=== PATIENT | male | born 1950 | race Caucasian/White ===

== ENCOUNTER 2017-05-30 08:36 | Observation (INO) | payer MEDICARE, BC ==
[~2017-05-30] VITALS: Ht 167.6 cm; Wt 91.0 kg
[~2017-05-30 08:36] MED LIST: ASPI81CH PO; ATOR80 PO; Amaryl1 MG PO; CLOP75 PO; LEVSOD125 PO; LISI20 PO; METF500 PO; NITR.4SL SL; PANT40 PO; PRAV20 PO; Toprol Xl50 MG PO; Xopenex Hfa15 GM INH
[2017-05-31 04:42] LABS: Anion Gap 7 mmol/L (6-16); Blood Urea Nitrogen 17 mg/dL (8-24); Bun/Creatinine Ratio 18.4 (12.0-20.0); CO2, Blood 25 mmol/L (21-32); Calcium, Blood 8.5 mg/dL (8.5-10.1); Chloride, Blood 107 mmol/L (98-108); Creatinine, Blood 0.92 mg/dL (0.60-1.20); Glomerular Filtration Rate >60 (60-); Glucose, Blood 178 mg/dL (70-99); Potassium, Blood 4.1 mmol/L (3.5-5.5); Sodium, Blood 139 mmol/L (136-145)
[2017-05-31] MEDS ORDERED: ASPI325 PO (07:45)
== END 2017-05-31 08:48 | disposition home or self-care (01) ==
LOC: MHTC 08:36 → ICUE 13:05 → MHTC 13:06 → ICUE 05-31 08:48
PROVIDERS: Internal Medicine Interventional Cardiology
DX: I25.10 Atherosclerotic heart disease of native coronary artery without angina pectoris (principal); I10 Essential (primary) hypertension; E11.9 Type 2 diabetes mellitus without complications; E78.5 Hyperlipidemia, unspecified; E03.9 Hypothyroidism, unspecified; E66.01 Morbid (severe) obesity due to excess calories; Z79.84 Long term (current) use of oral hypoglycemic drugs; Z79.82 Long term (current) use of aspirin; Z79.899 Other long term (current) drug therapy; Z87.891 Personal history of nicotine dependence; Z82.49 Family history of ischemic heart disease and other diseases of the circulatory system; Z79.02 Long term (current) use of antithrombotics/antiplatelets; Z88.0 Allergy status to penicillin; Z88.5 Allergy status to narcotic agent; Z98.61 Coronary angioplasty status; Z68.31 Body mass index [BMI] 31.0-31.9, adult; Z51.81 Encounter for therapeutic drug level monitoring
CPT/HCPCS: 36415; 80048; 82947; 85347; 85730; 92920; 92921; 93005; 93010; 93458; 99152; 99153; C1725; C1753; C1769; C1874; C1894; C9600; C9601; J1644; J2250; J3010; J7030; Q9967

== ENCOUNTER 2020-03-20 13:53 | Inpatient (IN) | payer MEDICARE, BC ==
[~2020-03-20] VITALS: Ht 167.6 cm; Wt 79.7 kg
[~2020-03-20 13:53] MED LIST changes: +ASPI325 PO; +EUTHYROX125 MCG PO; -LEVSOD125 PO; +METO100ER PO; -Toprol Xl50 MG PO
[2020-03-20 14:33] LABS: BASOPHILS ABSOLUTE AUTO 0.07 K/mm3 (0.00-0.23); BASOPHILS PERCENT AUTO 1 % (0-2); EOSINOPHILS ABSOLUTE AUTO 0.35 K/mm3 (0.00-0.68); EOSINOPHILS PERCENT AUTO 6 % (0-6); Hematocrit 45.3 % (37.0-53.0); Hemoglobin 14.1 g/dL (13.5-17.5); IMMATURE GRAN ABSOLUTE AUTO 0.04 K/mm3 (0.00-0.10); IMMATURE GRAN PERCENT AUTO 1 % (0-1); LYMPHOCYTES ABSOLUTE AUTO 1.45 K/mm3 (0.84-5.20); LYMPHOCYTES PERCENT AUTO 23 % (21-46); MONOCYTES ABSOLUTE AUTO 0.61 K/mm3 (0.16-1.47); MONOCYTES PERCENT AUTO 10 % (4-13); Mean Corpuscular HGB 28.8 pg (26.0-34.0); Mean Corpuscular HGB Conc 31.1 g/dL (31.5-36.5); Mean Corpuscular Volume 93 fL (80-100); Mean Platelet Volume 10.6 fL (9.1-12.4); NEUTROPHILS ABSOLUTE AUTO 3.72 K/mm3 (1.96-9.15); NEUTROPHILS PERCENT AUTO 60 % (41-73); Platelet Count 200 K/mm3 (150-400); RDW Coefficient Variation 13.2 % (11.7-14.2); RDW Standard Deviation 44.7 fL (35.1-46.3); Red Blood Cell Count 4.89 M/mm3 (4.30-5.90); White Blood Cell Count 6.24 K/mm3 (4.00-11.30)
[2020-03-20 14:56] LABS: Alanine Aminotransfer (ALT/SGP 46 U/L (12-78); Albumin/Globulin Ratio 1.1 (0.8-1.8); Alk Phos 58 U/L (50-136); Anion Gap 10 mmol/L (6-16); Aspartate Aminotrans (AST/SGOT 16 U/L (12-37); Bilirubin, Total 0.8 mg/dL (0.1-1.0); Blood Urea Nitrogen 22 mg/dL (8-24); Bun/Creatinine Ratio 19.6 (12.0-20.0); CO2, Blood 21 mmol/L (21-32); Calcium, Blood 9.1 mg/dL (8.5-10.1); Chloride, Blood 102 mmol/L (98-108); Creatinine, Blood 1.12 mg/dL (0.60-1.20); Globulin, Blood 3.7 g/dL (2.2-4.0); Glomerular Filtration Rate >60 (60-); Glucose, Blood 470 mg/dL (70-99); Potassium, Blood 4.8 mmol/L (3.5-5.5); Sodium, Blood 133 mmol/L (136-145); Total Protein, Blood 7.7 g/dL (6.4-8.2); Troponin I 0.147 ng/mL (0.000-0.040)
[2020-03-20] MEDS ORDERED: JARDIANCE25 MG PO (16:09)
[2020-03-20] MEDS ORDERED: GLUCOPHAGE1000 M4 PO (16:09)
[2020-03-20] MEDS ORDERED: LISI20 PO (16:10)
[2020-03-20 18:02] LABS: International Normalized Ratio 1.03
--- NOTE | 2020-03-20 20:22 | NUR ---
ADMIT NOTE PT ARRIVED TO PCU FROM ED VIA STRETCHER AT APPROX 1930. PT AMBULATED FROM ED STRETCHER TO PCU BED INDEPENDENTLY. PT A&OX4, PLEASANT. SP02>92% ON RA, LUNGS CLEAR. TELEMETRY READS SR, HR 80'S. PT C/O OF 3/10 CP, STATES IT FEELS LIKE "SOMEONE HAS THEIR THUMB SITTING ON MY APEX." FURTHER QUESTIONED IF THUMB FELT LIKE IT WAS PUSHING DOWN? PT STATED NO, IT "FEELS LIKE A THUMB IS JUST SITTING THERE." TRAY DELIVERED TO ROOM, PT EATING DURING ADMIT. ORIENTED TO ROOM, INSTRUCTED TO USE URINAL AT BEDSIDE, USE CALL LIGHT TO MAKE NEEDS KNOWN. HEPARIN INFUSING PER EMAR. CALL LIGHT IN REACH. BED IN LOWEST POSITION.
--- NOTE | 2020-03-21 04:55 | NUR ---
SHIFT SUMMARY NO ACUTE CHANGES THIS SHIFT. PT A&OX4, PLEASANT. SP02>92% ON RA, LUNGS CLEAR. TELEMETRY READS SR, HR 80'S. PT C/O OF 2/10 CONSTANT CP/PRESSURE. PT HAD TROUBLE FALLING ASLEEP, STATED HE TAKES MELATONIN AT HOME. CALL PLACED TO [facility]RE [facility]USHER ROXANA. ORE CRUSHER ROXANA W/ ORDERS FOR 5 MG MELATONIN. PT DID SLEEP OFF AND ON T/O NIGHT. PT USED URINAL AT BEDSIDE. PT NPO SINCE MIDNIGHT PER ORDERS. HEPARIN INFUSING PER EMAR. CALL LIGHT IN REACH. BED IN LOWEST POSITION.
[2020-03-21 06:30] LABS: BASOPHILS ABSOLUTE AUTO 0.07 K/mm3 (0.00-0.23); BASOPHILS PERCENT AUTO 1 % (0-2); EOSINOPHILS ABSOLUTE AUTO 0.49 K/mm3 (0.00-0.68); EOSINOPHILS PERCENT AUTO 6 % (0-6); Hematocrit 43.1 % (37.0-53.0); Hemoglobin 13.7 g/dL (13.5-17.5); IMMATURE GRAN ABSOLUTE AUTO 0.04 K/mm3 (0.00-0.10); IMMATURE GRAN PERCENT AUTO 1 % (0-1); LYMPHOCYTES ABSOLUTE AUTO 2.38 K/mm3 (0.84-5.20); LYMPHOCYTES PERCENT AUTO 29 % (21-46); MONOCYTES ABSOLUTE AUTO 0.88 K/mm3 (0.16-1.47); MONOCYTES PERCENT AUTO 11 % (4-13); Mean Corpuscular HGB 29.7 pg (26.0-34.0); Mean Corpuscular HGB Conc 31.8 g/dL (31.5-36.5); Mean Corpuscular Volume 94 fL (80-100); Mean Platelet Volume 10.6 fL (9.1-12.4); NEUTROPHILS ABSOLUTE AUTO 4.34 K/mm3 (1.96-9.15); NEUTROPHILS PERCENT AUTO 53 % (41-73); Platelet Count 194 K/mm3 (150-400); RDW Coefficient Variation 13.4 % (11.7-14.2); RDW Standard Deviation 46.1 fL (35.1-46.3); Red Blood Cell Count 4.61 M/mm3 (4.30-5.90)
[2020-03-21 06:40] LABS: Magnesium, Blood 2.1 mg/dL (1.6-2.4)
[2020-03-21 06:48] LABS: Anion Gap 8 mmol/L (6-16); Blood Urea Nitrogen 26 mg/dL (8-24); Bun/Creatinine Ratio 21.1 (12.0-20.0); CHOL/HDL RATIO 4.3; CO2, Blood 24 mmol/L (21-32); Calcium, Blood 9.4 mg/dL (8.5-10.1); Chloride, Blood 104 mmol/L (98-108); Cholesterol 138 mg/dL (50-200); Creatinine, Blood 1.23 mg/dL (0.60-1.20); Glomerular Filtration Rate >60 (60-); Glucose, Blood 274 mg/dL (70-99); HDL Cholesterol 32 mg/dL (>39); LDL/HDL RATIO Unable to Calculate; Low Density Lipoprotein Chol Unable to Calculate mg/dL (0-110); Potassium, Blood 4.6 mmol/L (3.5-5.5); Sodium, Blood 136 mmol/L (136-145); Triglycerides 814 mg/dL (30-160); Troponin I 0.175 ng/mL (0.000-0.040); Very Low Density Lipoprot Chol Unable to Calculate mg/dL (6-32)
--- NOTE | 2020-03-21 09:10 | NUR ---
Echocardiogram completed.
[2020-03-21 09:56] LABS: Influenza A, PCR Negative (NEGATIVE); Influenza B, PCR Negative (NEGATIVE); Resp Syncytial Virus, PCR Negative (NEGATIVE); SARS-Cov-2 (COVID-19) PCR, MMC Negative (NEGATIVE)
--- NOTE | 2020-03-21 10:10 | NUR ---
UPDATE PT TAKEN BY HEART CENTER STAFF TO NUMERICAL CONTROL MACHINE TOOL OPERATOR. WILL AWAIT RETURN.
--- NOTE | 2020-03-21 11:15 | NUR ---
UPDATE PT RETURNED FROM [employer]. VS STABLE. O2 SATS REMAIN ABOVE 90% ON RA. PLAN FOR PT TO TRANSFER TO [facility] FOR POSSIBLE CABG. RIGHT RADIAL SITE FREE FROM ANY BLEEDING, BRUISING OR HEMATOMA. ARM BOARD IN PLACE AND PT EDUCATED ON RESTRICTIONS. WILL CONTINUE TO MONITOR CLOSELY .
--- NOTE | 2020-03-21 14:30 | NUR ---
HEP GTT RESTART PER DR. NORRIS. PHARMACY NOTIFIED.
--- NOTE | 2020-03-21 17:51 | NUR ---
SHIFT SUMMARY PT ALERT AND ORIENTED. VS STABLE. O2 SATS REMAIN ABOVE 90% ON RA. HR NSR. RIGHT RADIAL SITE WITH CLEAR DRESSING IN PLACE. NO BLEEDING OR HEMATOMA NOTED. ARM BOARD IN PLACE. HEP GTT IN FUSING PER ORDERS. PT STILL AWAITING TRANSFER. WILL CONTINUE TO MONITOR AND REPORT TO ONCOMING RN. CALL LIGHT IN REACH.
--- NOTE | 2020-03-21 19:20 | NUR ---
ASSUMED CARE RECIEVED BEDSIDE REPORT FROM PEACE RN; PT A&O X 4; DENIES CHEST PAIN; VSS; NSR NOTED ON TELE; R RADIAL SITE C/D WITH TEGADERM AND ARM BOARD IN PLACE; FINGERS WARM TO TOUCH; PT DENIES NUMBNESS; HEP GTT TO R FOREARM; INDEPENDENT IN ROOM; PT REQUEST TO CALL DOCTOR AND REQUEST INCREASE TO 2100 MELATONIN; CALL LIGHT IN REACH; BED IN LOWEST POSITION
--- NOTE | 2020-03-21 20:10 | NUR ---
UPDATE CALL TO THOMAS SCHMIDT NP TO REQUEST MELATONIN INCREASE TO 10MG PER PATIENT REQUEST; THOMAS AGREED; NEW ORDER PLACED, REFER TO EMAR
--- NOTE | 2020-03-22 06:23 | NUR ---
SHIFT SUMMARY PT A&O X 4; VSS; DENIES CHEST PAIN; NSR NOTED ON TELE W/ HR 80'S; HEP GTT @ 16/U/KG/HR ADJUSTED PER PHARMACY; O2 SATS >93 ON RA; INDEPENDENT IN ROOM; USES URINAL AT BEDSIDE; AWAITING ROOM ASSIGNMENT FOR COBRA TRANSFER; SLEPT A FEW HOURS IN BETWEEN INTERVENTIONS; CALL LIGHT IN REACH; BED IN LOWEST POSITION; WILL CONTINUE TO MONITOR CLOSELY UNTIL HAND OFF TO DAY SHIFT RN.
--- NOTE | 2020-03-22 07:22 | NUR ---
HEparin gtt adjusted per pharmacy orders in eMAR.
--- NOTE | 2020-03-22 10:44 | NUR ---
Call to [facility] for update on room availability. My call was forwarded to the hand cigar making supervisor voice mail and I left a message asking about room availability.
--- NOTE | 2020-03-22 14:20 | NUR ---
TRANSFER PT TRANSFERED TO [facility] VIA GROUND TRANSPORT. REPORT WAS GIVEN TO UNIT CHARGE NURSE. PT'S PRESENT DURING TRANSFER, BELONGINGS WERE SENT WITH HER. PT REMAINS A&O X4, VSS, ON ROOM AIR, CONTINUES TO DENY CP/PRESSURE. HEPARIN GTT INFUSING PER EMAR UPON TRANSFER. R.RADIAL ACCESS SITE C/D/I, ARM BOARD IN PLACE.
== END 2020-03-22 14:26 | disposition short-term general hospital (02) | DRG 282 ==
LOC: ER 13:53 → PCU 19:00
PROVIDERS: Emergency Medicine; Internal Medicine Cardiovascular Disease; Physician Assistant; ADMIT Internal Medicine
PROC: 4A023N7 Measurement of Cardiac Sampling and Pressure, Left Heart, Percutaneous Approach (ICD-10-PCS; principal; 2020-03-21)
PROC: B211YZZ Fluoroscopy of Multiple Coronary Arteries using Other Contrast (ICD-10-PCS; 2020-03-21)
DX: I21.4 Non-ST elevation (NSTEMI) myocardial infarction (principal); I10 Essential (primary) hypertension; I25.10 Atherosclerotic heart disease of native coronary artery without angina pectoris; J45.909 Unspecified asthma, uncomplicated; E78.5 Hyperlipidemia, unspecified; I08.2 Rheumatic disorders of both aortic and tricuspid valves; E11.9 Type 2 diabetes mellitus without complications; Z79.4 Long term (current) use of insulin; Z79.01 Long term (current) use of anticoagulants; Z79.82 Long term (current) use of aspirin; Z79.84 Long term (current) use of oral hypoglycemic drugs; Z95.5 Presence of coronary angioplasty implant and graft; E03.9 Hypothyroidism, unspecified; Z87.891 Personal history of nicotine dependence
CPT/HCPCS: 0241U; 36415; 71046; 76937; 80048; 80053; 80061; 82947; 83036; 83735; 84484; 85025; 85347; 85610; 85730; 93306; 93458; 96376; 99152; 99285-25; A9270; C1769; C1894; J1644; J2250; J3010; J7030; Q9967

== ENCOUNTER 2020-06-07 13:13 | Observation (INO) | payer MEDICARE, BC ==
[~2020-06-07] VITALS: Ht 167.6 cm; Wt 79.4 kg
[~2020-06-07 13:13] MED LIST changes: +GLUCOPHAGE1000 M4 PO; +JARDIANCE25 MG PO
[2020-06-07 13:45] LABS: BASOPHILS ABSOLUTE AUTO 0.06 K/mm3 (0.00-0.23); BASOPHILS PERCENT AUTO 1 % (0-2); EOSINOPHILS ABSOLUTE AUTO 0.24 K/mm3 (0.00-0.68); EOSINOPHILS PERCENT AUTO 4 % (0-6); Hematocrit 37.2 % (37.0-53.0); Hemoglobin 11.7 g/dL (13.5-17.5); IMMATURE GRAN ABSOLUTE AUTO 0.03 K/mm3 (0.00-0.10); IMMATURE GRAN PERCENT AUTO 1 % (0-1); LYMPHOCYTES ABSOLUTE AUTO 1.36 K/mm3 (0.84-5.20); LYMPHOCYTES PERCENT AUTO 24 % (21-46); MONOCYTES ABSOLUTE AUTO 0.56 K/mm3 (0.16-1.47); MONOCYTES PERCENT AUTO 10 % (4-13); Mean Corpuscular HGB 28.8 pg (26.0-34.0); Mean Corpuscular HGB Conc 31.5 g/dL (31.5-36.5); Mean Corpuscular Volume 92 fL (80-100); Mean Platelet Volume 9.7 fL (9.1-12.4); NEUTROPHILS ABSOLUTE AUTO 3.44 K/mm3 (1.96-9.15); NEUTROPHILS PERCENT AUTO 61 % (41-73); Platelet Count 294 K/mm3 (150-400); RDW Coefficient Variation 13.9 % (11.7-14.2); Red Blood Cell Count 4.06 M/mm3 (4.30-5.90); White Blood Cell Count 5.69 K/mm3 (4.00-11.30)
[2020-06-07 14:04] LABS: Alanine Aminotransfer (ALT/SGP 38 U/L (12-78); Albumin, Blood 4.1 g/dL (3.4-5.0); Albumin/Globulin Ratio 1.2 (0.8-1.8); Alk Phos 66 U/L (50-136); Anion Gap 8 mmol/L (6-16); Aspartate Aminotrans (AST/SGOT 9 U/L (12-37); Bilirubin, Total 0.5 mg/dL (0.1-1.0); Blood Urea Nitrogen 22 mg/dL (8-24); Bun/Creatinine Ratio 19.6 (12.0-20.0); CO2, Blood 21 mmol/L (21-32); Calcium, Blood 8.6 mg/dL (8.5-10.1); Chloride, Blood 105 mmol/L (98-108); Creatinine, Blood 1.12 mg/dL (0.60-1.20); Globulin, Blood 3.5 g/dL (2.2-4.0); Glomerular Filtration Rate >60 (60-); Glucose, Blood 331 mg/dL (70-99); Sodium, Blood 134 mmol/L (136-145); Total Protein, Blood 7.6 g/dL (6.4-8.2); Troponin I <0.015 ng/mL (0.000-0.040)
[2020-06-07] MEDS ORDERED: HYDROCODONE-AC1 EA10 PO (16:04)
--- NOTE | 2020-06-07 18:46 | NUR ---
PT PLEASANT SINCE ADMIT. STATES CHEST PAIN MOSTLY GONE. NOW DOWN TO 3. HAS A NITRO PATCH ON CHEST. H/R REG, NO MURMER NOTED. PER TELE NSR AT 75. PT LUNGS CLEAR, RESP EASY, UNLABORED ON R.A. BT X4 LAST BM YEST PER PT. NO EDEMA NOTED. PT WEARING CESAR HOSE. REFUSED LOVENOX AND BILAT LEG COMP. BED IN LOW POSITION, CALL LITE IN REACH, CALLS APPROP
--- NOTE | 2020-06-07 21:21 | NUR ---
AT 2049, PATIENT COMPLAINED OF 8-9/10 MID STERNAL WELL ACROSS CHEST TIGHTNESS AND INCREASING SOB. VITAL SIGNS STABLE, 02 APPPLIED FOR COMFORT AND EKG COMPLETED WITH NO OBVIOUS CHANGES. CALL PLACED TO HOSPITALIST TO INFORM. PATIENT CURRENTLY WEARING 1.5" NTG PAST ON LEFT CHEST. AWAITING RETURN CALL. IN THE INTERIM, PATIENT'S DISCOMFORT DECREASED TO 4-5/10. [address] FOR COMFORT.
--- NOTE | 2020-06-07 23:50 | NUR ---
MID STERNAL CHEST PAIN NOW TOLERABLE 2-3 AT REST. PATIENT ENCOURAGED TO USE URINAL TO VOID INSTEAD OF AMBULATING TO BATHROOM . 2300 TROPONIN REMAINS 0.015 (NO CHANGE FROM PREVIOUS TROPONINS.) EVENING HOSPITALIST AWARE. WILL CONTINUE MONITORING
--- NOTE | 2020-06-08 04:58 | NUR ---
PATIENT AWAKE MOST OF THE NIGHT. HE DID STATE THAT HE ROUTINELY DOES HAVE INSOMNIA. COMPLAINED ABOUT MID STERNAL STABBING PAIN AND PRESSURE ACROSS CHEST. EACH TIME, HE HAD JUST GOTTEN OOB TO BATHROOM WHEN INTENSITY OF DISCOMFORT WOULD INCREASE. INITIALLY 02 WAS PLACED FOR PATIENT COMFORT. VITAL SIGNS (PLACED IN CHART) WERE ALL WNL. TROPONINS MENTIONED EARLIER WERE UNCHANGED FROM PREVIOUS 0.015 LEVEL. STAT EKG DURING FIRST EPISODE IS ON CHART AND REMAINS JUST EKG FROM 1330 YESTERDAY 2ND EPISODE WAS MUCH LIKE THE FIRST, EXCEPT PATIENT SEEMED MORE ANXIOUS. 2.5MG MORPHINE GIVEN PER ORDER WITH GOOD RELIEF OF CHEST PAIN, ONLY PATIENT WAS VERY UNCOMFORTABLE TAKING THE MORPHINE FOR HIS PAIN. INDER IS A&OX4, PLEASANT AND COOPERATIVE WITH CARE.
[2020-06-08 05:21] LABS: BASOPHILS ABSOLUTE AUTO 0.08 K/mm3 (0.00-0.23); BASOPHILS PERCENT AUTO 1 % (0-2); EOSINOPHILS ABSOLUTE AUTO 0.21 K/mm3 (0.00-0.68); EOSINOPHILS PERCENT AUTO 3 % (0-6); Hematocrit 35.8 % (37.0-53.0); Hemoglobin 11.3 g/dL (13.5-17.5); IMMATURE GRAN ABSOLUTE AUTO 0.02 K/mm3 (0.00-0.10); IMMATURE GRAN PERCENT AUTO 0 % (0-1); LYMPHOCYTES ABSOLUTE AUTO 2.03 K/mm3 (0.84-5.20); LYMPHOCYTES PERCENT AUTO 29 % (21-46); MONOCYTES ABSOLUTE AUTO 0.78 K/mm3 (0.16-1.47); MONOCYTES PERCENT AUTO 11 % (4-13); Mean Corpuscular HGB 28.4 pg (26.0-34.0); Mean Corpuscular HGB Conc 31.6 g/dL (31.5-36.5); Mean Corpuscular Volume 90 fL (80-100); Mean Platelet Volume 9.7 fL (9.1-12.4); NEUTROPHILS ABSOLUTE AUTO 3.91 K/mm3 (1.96-9.15); NEUTROPHILS PERCENT AUTO 56 % (41-73); Platelet Count 261 K/mm3 (150-400); RDW Coefficient Variation 13.7 % (11.7-14.2); RDW Standard Deviation 45.9 fL (35.1-46.3); Red Blood Cell Count 3.98 M/mm3 (4.30-5.90); White Blood Cell Count 7.03 K/mm3 (4.00-11.30)
[2020-06-08 05:57] LABS: Alanine Aminotransfer (ALT/SGP 34 U/L (12-78); Albumin, Blood 3.9 g/dL (3.4-5.0); Albumin/Globulin Ratio 1.3 (0.8-1.8); Alk Phos 56 U/L (50-136); Anion Gap 5 mmol/L (6-16); Aspartate Aminotrans (AST/SGOT 11 U/L (12-37); Bilirubin, Total 0.8 mg/dL (0.1-1.0); Blood Urea Nitrogen 18 mg/dL (8-24); Bun/Creatinine Ratio 18.6 (12.0-20.0); CO2, Blood 25 mmol/L (21-32); Calcium, Blood 8.9 mg/dL (8.5-10.1); Chloride, Blood 104 mmol/L (98-108); Creatinine, Blood 0.97 mg/dL (0.60-1.20); Glomerular Filtration Rate >60 (60-); Glucose, Blood 166 mg/dL (70-99); Potassium, Blood 4.5 mmol/L (3.5-5.5); Sodium, Blood 134 mmol/L (136-145); Total Protein, Blood 6.9 g/dL (6.4-8.2)
[2020-06-08 07:23] LABS: Influenza A, PCR NEGATIVE (NEGATIVE); Influenza B, PCR NEGATIVE (NEGATIVE); Resp Syncytial Virus, PCR NEGATIVE (NEGATIVE); SARS-Cov-2 (COVID-19) PCR, MMC NEGATIVE (NEGATIVE)
--- NOTE | 2020-06-08 12:36 | NUR ---
1000 PT CO CHEST PAIN. MIDSTERNAL. STATE FELT MORPHINE DID NOT HELP LAST NITE. FELT QUITE BAD WITH IT. STATES PAIN 8/10. THOUGHT THE NITRO DIDNT HELP MUCH WHEN TOOK AT HOME. SO, AGREED TO TRY NORCO. GAVE. DISCUSSED WITH DR ALMEIDA IN [facility]. 1100 PAIN AT 5/10. BETTER, NOT MUCH. AGREED TO TRY NITRO. DONE 1120 PAIN DOWN TO 3-4/10. GAVE ONE MORE. 1130 PAIN DOWN TO 2 NOW. BP 103/60 P 79. PT MORE COMFORTABLE.
--- NOTE | 2020-06-08 19:14 | NUR ---
PT KHAS BEEN PLEASANT TODAY. DID HAVE IN ROOM DURING VISIT HOURS TODAY. DR STARTED ON IMDUR TODAY. DISCUSSED HIS BP AND TAKING THE NITRO. ADVISED THE MORPHINE DID NOT DO WELL FOR HIM. FLUSHED AND VERY UNCOMFORTABLE FEELING. NORCO DID OKAY, BROUGHT PAIN FROM 8-9 TO A 5. TRIED NITRO S/L. AFFTER GAVE 2, DROPPED TO A 2. PT DID HAVE A LOW BP THIS AFT. OF 83/62. RETOOK, IT WAS 109/59. PT STATES ASYMPTOMATIC, SO NOT SURE IF TRUE READING . ADVISED PT TO GET ASSISTANCE IF FEELS SYMPTOMATIC OR IF NEEDS OUT OF BED. ADVISED RUTH RN TO WATCH BP. NO OTHER CONCERNS NOTED TODAY. BED IN LOW PPOSITION, CALL LITE IN REACH, CALLS APPROP
[2020-06-09 04:41] LABS: BASOPHILS ABSOLUTE AUTO 0.06 K/mm3 (0.00-0.23); BASOPHILS PERCENT AUTO 1 % (0-2); EOSINOPHILS ABSOLUTE AUTO 0.25 K/mm3 (0.00-0.68); EOSINOPHILS PERCENT AUTO 4 % (0-6); Hemoglobin 10.2 g/dL (13.5-17.5); IMMATURE GRAN ABSOLUTE AUTO 0.02 K/mm3 (0.00-0.10); IMMATURE GRAN PERCENT AUTO 0 % (0-1); LYMPHOCYTES ABSOLUTE AUTO 1.91 K/mm3 (0.84-5.20); LYMPHOCYTES PERCENT AUTO 29 % (21-46); MONOCYTES ABSOLUTE AUTO 0.82 K/mm3 (0.16-1.47); MONOCYTES PERCENT AUTO 13 % (4-13); Mean Corpuscular HGB 28.3 pg (26.0-34.0); Mean Corpuscular HGB Conc 30.9 g/dL (31.5-36.5); Mean Corpuscular Volume 92 fL (80-100); Mean Platelet Volume 9.8 fL (9.1-12.4); NEUTROPHILS ABSOLUTE AUTO 3.48 K/mm3 (1.96-9.15); NEUTROPHILS PERCENT AUTO 53 % (41-73); Platelet Count 247 K/mm3 (150-400); RDW Coefficient Variation 13.6 % (11.7-14.2); RDW Standard Deviation 45.9 fL (35.1-46.3); White Blood Cell Count 6.54 K/mm3 (4.00-11.30)
[2020-06-09 04:57] LABS: Anion Gap 4 mmol/L (6-16); Blood Urea Nitrogen 19 mg/dL (8-24); Bun/Creatinine Ratio 18.4 (12.0-20.0); CO2, Blood 24 mmol/L (21-32); Calcium, Blood 8.7 mg/dL (8.5-10.1); Chloride, Blood 106 mmol/L (98-108); Creatinine, Blood 1.03 mg/dL (0.60-1.20); Glomerular Filtration Rate >60 (60-); Glucose, Blood 191 mg/dL (70-99); Potassium, Blood 4.7 mmol/L (3.5-5.5); Sodium, Blood 134 mmol/L (136-145)
--- NOTE | 2020-06-09 05:45 | NUR ---
SHIFT SUMMARY- PT. A&O, COOPERATIVE WITH CARE. C/O CP LAST NIGHT 05/24. MEDICATED WITH NORCO WITH GOOD RELIEF. PT. STATES CP HAS BEEN PERSISTENT AND REMAINED A /10 DURING THE NIGHT. SLEPT T/O THE NIGHT, NO APPARENT DISTRESS NOTED, SR ON TELE. PT. INDEPENDENT IN ROOM, VSS. DENIES ANY OTHER NEEDS AT THIS TIME. CALL LIGHT WITHIN REACH AND SIDE RAILS UPX2. WILL CONT TO MONITOR.
[2020-06-09] MEDS ORDERED: Isosorbide Mono30 MG PO (10:39)
[2020-06-09] MEDS ORDERED: NITR.4SL SL (10:40)
--- NOTE | 2020-06-09 11:20 | NUR ---
REVIEW D'C WITH PATIENT. PATIENT HAD DISCUSSED VICKI ADAIR AND NOW REQUESTS. VS DONE. MED GIVEN. IV D'C W/NO SIGNS OF SWELLING OR BRUISING. PATIENT TO HAVE STENTS PLACED TOMORROW IN [place]. ADVISED TO CALL ABOUT WHAT MEDS TO NOT TAKE. HAS RX FOR NARCOTIC MED. OTHER RX'S SENT TO [facility]. ANSWER ALL QUESTIONS. PATIENT VERBALIZES UNDERSTANDING OF D'C. CAN RETURN TO E.R. IF NEEDED. AWARE [facility] WILL CALL FOR F/U APPT. AWAITING RIDE. W/C IN ROOM.
== END 2020-06-09 12:08 | disposition home or self-care (01) ==
LOC: ER 13:13 → MEDS 13:14
PROVIDERS: Physician Assistant; ADMIT Family Medicine
DX: I25.119 Atherosclerotic heart disease of native coronary artery with unspecified angina pectoris (principal); I10 Essential (primary) hypertension; E11.9 Type 2 diabetes mellitus without complications; E03.9 Hypothyroidism, unspecified; Z95.1 Presence of aortocoronary bypass graft; Z95.5 Presence of coronary angioplasty implant and graft; Z79.82 Long term (current) use of aspirin
CPT/HCPCS: 0241U; 36415; 71045; 80048; 80053; 82947; 84484; 85025; 93005; 93010; 94762; 99285-25; A9270; A9270-GY; J1815; J2270; J3480

== ENCOUNTER 2020-06-18 02:32 | Observation (INO) | payer MEDICARE, BC ==
[~2020-06-18] VITALS: Ht 167.6 cm; Wt 65.8 kg
[~2020-06-18 02:32] MED LIST changes: +HYDROCODONE-AC1 EA10 PO; +Isosorbide Mono30 MG PO
[2020-06-18 03:06] LABS: BASOPHILS ABSOLUTE AUTO 0.07 K/mm3 (0.00-0.23); BASOPHILS PERCENT AUTO 1 % (0-2); EOSINOPHILS ABSOLUTE AUTO 0.21 K/mm3 (0.00-0.68); EOSINOPHILS PERCENT AUTO 3 % (0-6); Hematocrit 38.2 % (37.0-53.0); Hemoglobin 11.9 g/dL (13.5-17.5); IMMATURE GRAN ABSOLUTE AUTO 0.03 K/mm3 (0.00-0.10); IMMATURE GRAN PERCENT AUTO 0 % (0-1); LYMPHOCYTES ABSOLUTE AUTO 1.63 K/mm3 (0.84-5.20); LYMPHOCYTES PERCENT AUTO 24 % (21-46); MONOCYTES ABSOLUTE AUTO 1.35 K/mm3 (0.16-1.47); MONOCYTES PERCENT AUTO 20 % (4-13); Mean Corpuscular HGB 28.5 pg (26.0-34.0); Mean Corpuscular HGB Conc 31.2 g/dL (31.5-36.5); Mean Corpuscular Volume 91 fL (80-100); Mean Platelet Volume 9.8 fL (9.1-12.4); NEUTROPHILS ABSOLUTE AUTO 3.64 K/mm3 (1.96-9.15); NEUTROPHILS PERCENT AUTO 53 % (41-73); Platelet Count 254 K/mm3 (150-400); RDW Coefficient Variation 13.4 % (11.7-14.2); RDW Standard Deviation 45.4 fL (35.1-46.3); Red Blood Cell Count 4.18 M/mm3 (4.30-5.90); White Blood Cell Count 6.93 K/mm3 (4.00-11.30)
[2020-06-18 03:25] LABS: Troponin I <0.015 ng/mL (0.000-0.040)
[2020-06-18 03:26] LABS: Alanine Aminotransfer (ALT/SGP 27 U/L (12-78); Albumin, Blood 4.3 g/dL (3.4-5.0); Albumin/Globulin Ratio 1.1 (0.8-1.8); Alk Phos 58 U/L (50-136); Anion Gap 8 mmol/L (6-16); Aspartate Aminotrans (AST/SGOT 14 U/L (12-37); Bilirubin, Total 0.6 mg/dL (0.1-1.0); Blood Urea Nitrogen 25 mg/dL (8-24); Bun/Creatinine Ratio 19.5 (12.0-20.0); CO2, Blood 20 mmol/L (21-32); Calcium, Blood 9.5 mg/dL (8.5-10.1); Chloride, Blood 105 mmol/L (98-108); Creatinine, Blood 1.28 mg/dL (0.60-1.20); Globulin, Blood 3.8 g/dL (2.2-4.0); Glomerular Filtration Rate 59 (60-); Glucose, Blood 177 mg/dL (70-99); Potassium, Blood 4.7 mmol/L (3.5-5.5); Sodium, Blood 133 mmol/L (136-145); Total Protein, Blood 8.1 g/dL (6.4-8.2)
[2020-06-18 10:38] LABS: Prothrombin Time Results 10.8 Sec (9.7-11.5)
--- NOTE | 2020-06-18 18:11 | NUR ---
SHIFT NOTE PT ARRIVED FROM ER THIS MORNING WITH [place]. PT DENIES CP OR SOB UPON ARRIVAL. PT WITH RECENT CABG AND HEART STENTS. HEPARIN INFUSING. PT USING URINAL AT SIDE OF THE BED W/O DIFF. PT AMBULATED FROM [facility] TO [facility] THIS AM. A/O X4. ANSWERING QUESTIONS IN FULL SENTENCES
[2020-06-19 04:49] LABS: BASOPHILS ABSOLUTE AUTO 0.05 K/mm3 (0.00-0.23); BASOPHILS PERCENT AUTO 1 % (0-2); EOSINOPHILS ABSOLUTE AUTO 0.18 K/mm3 (0.00-0.68); EOSINOPHILS PERCENT AUTO 5 % (0-6); Hematocrit 32.9 % (37.0-53.0); Hemoglobin 10.3 g/dL (13.5-17.5); Mean Corpuscular HGB 27.9 pg (26.0-34.0); Mean Corpuscular HGB Conc 31.3 g/dL (31.5-36.5); Mean Corpuscular Volume 89 fL (80-100); Mean Platelet Volume 9.7 fL (9.1-12.4); Platelet Count 240 K/mm3 (150-400); RDW Coefficient Variation 13.2 % (11.7-14.2); Red Blood Cell Count 3.69 M/mm3 (4.30-5.90); White Blood Cell Count 3.97 K/mm3 (4.00-11.30)
--- NOTE | 2020-06-19 04:49 | NUR ---
SHIFT SUMMARY PATIENT IS ALERT AND ORIENTED X4. INDEPENDENT IN THE ROOM. DENIED CP AT BEGINNING OF SHIFT, CP THIS AM, MEDICATED PER EMAR. ALLERGY TO TELEMETRY STICKERS, CLEANED SKIN AND CHANGED TO CLOTH ONES. 02 SATS >95% ON RA. VSS, NO ACUTE CHANGES. CALL LIGHT IN REACH.
[2020-06-19 05:03] LABS: IMMATURE GRAN ABSOLUTE AUTO 0.02 K/mm3 (0.00-0.10); IMMATURE GRAN PERCENT AUTO 1 % (0-1); LYMPHOCYTES ABSOLUTE AUTO 1.34 K/mm3 (0.84-5.20); LYMPHOCYTES PERCENT AUTO 34 % (21-46); MONOCYTES ABSOLUTE AUTO 0.88 K/mm3 (0.16-1.47); MONOCYTES PERCENT AUTO 22 % (4-13); NEUTROPHILS PERCENT AUTO 38 % (41-73)
[2020-06-19 05:40] LABS: Anion Gap 8 mmol/L (6-16); Blood Urea Nitrogen 25 mg/dL (8-24); Bun/Creatinine Ratio 22.5 (12.0-20.0); CHOL/HDL RATIO 3.2; CO2, Blood 23 mmol/L (21-32); Calcium, Blood 9.5 mg/dL (8.5-10.1); Chloride, Blood 105 mmol/L (98-108); Cholesterol 111 mg/dL (50-200); Creatinine, Blood 1.11 mg/dL (0.60-1.20); Glomerular Filtration Rate >60 (60-); Glucose, Blood 182 mg/dL (70-99); HDL Cholesterol 35 mg/dL (>39); LDL/HDL RATIO 0.1; Low Density Lipoprotein Chol 3 mg/dL (0-110); Potassium, Blood 4.5 mmol/L (3.5-5.5); Sodium, Blood 136 mmol/L (136-145); Triglycerides 366 mg/dL (30-160); Very Low Density Lipoprot Chol 73 mg/dL (6-32)
[2020-06-19] MEDS ORDERED: MELATONIN5 M1 PO (10:52)
[2020-06-19] MEDS ORDERED: METF500 PO (10:52)
[2020-06-19] MEDS ORDERED: COLCRYS0.6 M1 PO (10:55)
--- NOTE | 2020-06-19 15:13 | NUR ---
PT EXPRESSED UNDERSTANDING OF D/C TEACHING EXPRESSED UNDERSTANDING OF MEDICATION DOSE CHANGE. PT DENIES FURTHER QUESTIONS OR CONCERNS ABOUT D/C. IV REMOVED AND PRESSURE DRESSED, IV IN TACT.
--- NOTE | 2020-06-19 18:40 | NUR ---
ADMIT: 06/18/20 DISCHARGE: DX: CP CC: [facility]il[facility] JOE CALL: Met with Mabel, call her at home for joe. 1 week with pcp. RESIDENCE: home CAREGIVER: AMOL GONZALEZ ([place]) DX: Leukemia, GERD, colon cancer, HTN, see list DME: none CCM: Referral- 2020 HOME HEALTH: none SUMMARY: 06/18/20 06/19/20 Met with Mabel, discussed care coordination and reviewed home assessment. Did not identify any care needs she would have at discharge. She has friends and a sister that will be helping her if needed, She provides all self care, drives, cooks and shops. Discussed joe call and follow up appointment in 1 week with Shauna. She is expected to discharge Tuesday and 2 study complete. cp Atypical chest pain: Etiology likely secondary to acute pericarditis, patient does admit to a history of recent viral illness 10 days ago. Also had a Covid vaccination done about a month ago.
== END 2020-06-19 14:17 | disposition home or self-care (01) ==
LOC: ER 02:32 → PCU 02:33
PROVIDERS: Emergency Medicine; Pharmacist; ADMIT Internal Medicine
DX: I30.9 Acute pericarditis, unspecified (principal); I25.10 Atherosclerotic heart disease of native coronary artery without angina pectoris; I10 Essential (primary) hypertension; E11.9 Type 2 diabetes mellitus without complications; J45.909 Unspecified asthma, uncomplicated; E78.5 Hyperlipidemia, unspecified; I08.0 Rheumatic disorders of both mitral and aortic valves; E03.9 Hypothyroidism, unspecified; E87.1 Hypo-osmolality and hyponatremia; N17.9 Acute kidney failure, unspecified; Z95.1 Presence of aortocoronary bypass graft; Z88.0 Allergy status to penicillin; Z88.1 Allergy status to other antibiotic agents; Z88.5 Allergy status to narcotic agent; Z95.5 Presence of coronary angioplasty implant and graft; Z79.4 Long term (current) use of insulin; Z87.891 Personal history of nicotine dependence
CPT/HCPCS: 36415; 71046; 80048; 80053; 80061; 83036; 84484; 85025; 85379; 85610; 85730; 93005; 93010; 96374; 96375; 99285-25; A9270; G0378; J1644; J3010; J7030

== ENCOUNTER → 2022-09-15 | Outpatient (CLI) | payer MEDICARE, BC ==
[~2022-09-15] MED LIST changes: +COLCRYS0.6 M1 PO; +MELATONIN5 M1 PO; +METO25ER PO; +MULVITA PO; +TRULICITY0.75 MG/01 SQ; +XOPENEX HFA15 GM IH
[2022-09-17 11:46] LABS: Stool Occult Bld Immuno 1 Negative (NEGATIVE)
== END | disposition home or self-care (01) ==
LOC: LAB 13:38 → LAB SHORT 13:38
PROVIDERS: Internal Medicine
DX: D53.9 Nutritional anemia, unspecified (principal)
CPT/HCPCS: 82274

== ENCOUNTER 2023-11-11 21:05 | Inpatient (IN) | payer MEDICARE, BC ==
[~2023-11-11] VITALS: Ht 167.6 cm; Wt 77.7 kg
[~2023-11-11 21:05] MED LIST changes: -EUTHYROX125 MCG PO; +LEVSOD112 PO; +Lactated Ringer's 1,000 ML IV SCH; -METO25ER PO
[2023-11-11] MEDS ORDERED: Ondansetron HCl 2 MG / ML 2ML Vial IV PRN ×2 (21:20→23:35)
[2023-11-11 21:49] LABS: BASOPHILS ABSOLUTE AUTO 0.04 K/mm3 (0.00-0.23); BASOPHILS PERCENT AUTO 0 % (0-2); EOSINOPHILS ABSOLUTE AUTO 0.07 K/mm3 (0.00-0.68); EOSINOPHILS PERCENT AUTO 1 % (0-6); Hematocrit 47.2 % (37.0-53.0); Hemoglobin 15.6 g/dL (13.5-17.5); IMMATURE GRAN ABSOLUTE AUTO 0.07 K/mm3 (0.00-0.10); IMMATURE GRAN PERCENT AUTO 1 % (0-1); LYMPHOCYTES ABSOLUTE AUTO 0.99 K/mm3 (0.84-5.20); LYMPHOCYTES PERCENT AUTO 9 % (21-46); MONOCYTES ABSOLUTE AUTO 0.97 K/mm3 (0.16-1.47); MONOCYTES PERCENT AUTO 8 % (4-13); Mean Corpuscular HGB 30.7 pg (26.0-34.0); Mean Corpuscular HGB Conc 33.1 g/dL (31.5-36.5); Mean Corpuscular Volume 93 fL (80-100); NEUTROPHILS ABSOLUTE AUTO 9.37 K/mm3 (1.96-9.15); NEUTROPHILS PERCENT AUTO 82 % (41-73); Platelet Count 208 K/mm3 (150-400); RDW Coefficient Variation 13.1 % (11.7-14.2); RDW Standard Deviation 44.6 fL (35.1-46.3); Red Blood Cell Count 5.08 M/mm3 (4.30-5.90); White Blood Cell Count 11.51 K/mm3 (4.00-11.30)
[2023-11-11 22:09] LABS: Albumin, Blood 4.3 g/dL (3.4-5.0); Albumin/Globulin Ratio 1.3 (0.8-1.8); Bilirubin, Total 1.2 mg/dL (0.1-1.0); Bun/Creatinine Ratio 22.1 (12.0-20.0); Calcium, Blood 9.4 mg/dL (8.5-10.1); Creatinine, Blood 1.13 mg/dL (0.60-1.20); Globulin, Blood 3.2 g/dL (2.2-4.0); Potassium, Blood 4.7 mmol/L (3.5-5.5); Total Protein, Blood 7.5 g/dL (6.4-8.2)
[2023-11-11] MEDS ORDERED: Ondansetron HCl 2 MG / ML 2ML Vial IV ONE (22:15)
[2023-11-11] MEDS ORDERED: Morphine Sulfate 4 MG/1 ML Injection IV ONE (22:15)
[2023-11-11] MEDS ORDERED: Aspir 8181 MG PO (22:26)
[2023-11-11] MEDS ORDERED: BRILINTA90 M7 PO (22:31)
[2023-11-11] MEDS ORDERED: TOUJEO SOL300 UNIT/2 SC (22:31)
[2023-11-11] MEDS ORDERED: Acetaminophen 325 MG TABLET PO PRN (23:35)
[2023-11-11] MEDS ORDERED: Melatonin 5 MG Tablet PO PRN (23:35)
[2023-11-11] MEDS ORDERED: FLU VACC TS2024-25(6MOS UP)/PF 45 MCG/0.5 ML SYRINGE IM ONE (23:35)
[2023-11-12] VITALS (8 sets, daily range): BP systolic 109–158; BP diastolic 66–77
[2023-11-12] MEDS ORDERED: Insulin Regular 100 UNIT/ML 10ML Vial SC SCH
[2023-11-12] MEDS ORDERED: Nitroglycerin 0.4 MG SUBL SL PRN (00:05)
[2023-11-12] MEDS ORDERED: RYBELSUS14 MG PO (00:18)
[2023-11-12 00:50] LABS: Free Thyroxine 1.46 ng/dL (0.70-1.60); Thyroid Stimulating Hormone 0.078 uIU/mL (0.360-4.800)
--- NOTE | 2023-11-12 01:21 | NUR ---
NEW ADMIT. PATIENT ADMITTED TO ROOM 333 FROM THE ER WITH CHEST PAIN. PATIENT ARRIVED TO ROOM VIA GURNEY AND 1P TRANSPORT. PATIENT AMBULATED FROM [facility] TO HOSPITAL BED WITH STEADY GAIT. PATIENT ARRIVED TO ROOM WITH 1 PERSONAL BELONGINGS BAG. BED IS LOCKED IN THE LOWEST POSITION WITH CALL LIGHT IN REACH. CARE IS ONGOING.
[2023-11-12] MEDS ORDERED: METO50ER PO (01:31)
[2023-11-12 02:10] LABS: BASOPHILS ABSOLUTE AUTO 0.04 K/mm3 (0.00-0.23); BASOPHILS PERCENT AUTO 0 % (0-2); EOSINOPHILS ABSOLUTE AUTO 0.08 K/mm3 (0.00-0.68); EOSINOPHILS PERCENT AUTO 1 % (0-6); Hematocrit 47.3 % (37.0-53.0); Hemoglobin 15.6 g/dL (13.5-17.5); IMMATURE GRAN ABSOLUTE AUTO 0.04 K/mm3 (0.00-0.10); IMMATURE GRAN PERCENT AUTO 0 % (0-1); LYMPHOCYTES ABSOLUTE AUTO 1.25 K/mm3 (0.84-5.20); LYMPHOCYTES PERCENT AUTO 13 % (21-46); MONOCYTES ABSOLUTE AUTO 0.91 K/mm3 (0.16-1.47); MONOCYTES PERCENT AUTO 9 % (4-13); Mean Corpuscular HGB 30.9 pg (26.0-34.0); Mean Corpuscular Volume 94 fL (80-100); NEUTROPHILS PERCENT AUTO 77 % (41-73); Platelet Count 228 K/mm3 (150-400); RDW Coefficient Variation 13.1 % (11.7-14.2); RDW Standard Deviation 44.6 fL (35.1-46.3); Red Blood Cell Count 5.05 M/mm3 (4.30-5.90); White Blood Cell Count 10.02 K/mm3 (4.00-11.30)
[2023-11-12 02:23] LABS: Alanine Aminotransfer (ALT/SGP 72 U/L (12-78); Albumin, Blood 4.1 g/dL (3.4-5.0); Albumin/Globulin Ratio 1.3 (0.8-1.8); Alk Phos 47 U/L (50-136); Anion Gap 18 mmol/L (3-11); Aspartate Aminotrans (AST/SGOT 28 U/L (12-37); Bilirubin, Total 1.2 mg/dL (0.1-1.0); Blood Urea Nitrogen 26 mg/dL (8-24); Bun/Creatinine Ratio 23.4 (12.0-20.0); CHOL/HDL RATIO 3.2; CO2, Blood 17 mmol/L (21-32); Chloride, Blood 108 mmol/L (98-108); Cholesterol 107 mg/dL (50-200); Creatinine, Blood 1.11 mg/dL (0.60-1.20); Globulin, Blood 3.2 g/dL (2.2-4.0); Glomerular Filtration Rate 70 (60-); Glucose, Blood 131 mg/dL (70-99); HDL Cholesterol 33 mg/dL (>39); LDL/HDL RATIO Unable to Calculate; Low Density Lipoprotein Chol Unable to Calculate mg/dL (0-110); Magnesium, Blood 1.8 mg/dL (1.6-2.4); Potassium, Blood 5.3 mmol/L (3.5-5.5); Sodium, Blood 138 mmol/L (136-145); Total Protein, Blood 7.3 g/dL (6.4-8.2); Triglycerides 449 mg/dL (30-160); Very Low Density Lipoprot Chol Unable to Calculate mg/dL (6-32)
--- NOTE | 2023-11-12 04:13 | NUR ---
[place] [id number] [place] PATIENT TRANSPORTER-PATIENT TRANSPORTER NOTIFIED RN. FIRST B/P AT REPORTS OF CHEST PAIN: B/P: 132/75 P:96 NITRO GIVEN AT 0412 B/P AT 0415- B/P: 109/66 P:100 0416 PATIENT REPORTS RELIEF IF CHEST PAIN.
[2023-11-12] MEDS ORDERED: Albuterol HFA200 ACT/6.7 GM INH INH PRN (05:45)
[2023-11-12] MEDS ORDERED: Pantoprazole Sodium 40 MG Tab PO SCH (06:00)
[2023-11-12] MEDS ORDERED: Levothyroxine Sodium 0.125 MG Tab PO SCH (06:00)
[2023-11-12 09:00] LABS: Bun/Creatinine Ratio 24.3 (12.0-20.0); Calcium, Blood 8.9 mg/dL (8.5-10.1); Creatinine, Blood 1.15 mg/dL (0.60-1.20); Potassium, Blood 4.7 mmol/L (3.5-5.5)
[2023-11-12] MEDS ORDERED: Multivitamins 1 Tab PO SCH (09:00)
[2023-11-12] MEDS ORDERED: Metoprolol Succinate 50 MG TABCR PO SCH ×2 (09:00→21:00)
[2023-11-12] MEDS ORDERED: Aspirin 81 MG Chew PO SCH (09:00)
[2023-11-12] MEDS ORDERED: Lisinopril 20 MG Tab PO SCH ×2 (09:00→21:00)
[2023-11-12] MEDS ORDERED: Enoxaparin 40 MG/0.4 ML SYR SC SCH (09:00)
[2023-11-12] MEDS ORDERED: Isosorbide Mononitrate 30 MG TABCR PO SCH (09:00)
[2023-11-12] MEDS ORDERED: Regadenoson 0.4 MG/5 ML SYRINGE ONE (10:05)
[2023-11-12] MEDS ORDERED: Aminophylline 250MG / 10ML 10 ML Vial ONE (10:05)
[2023-11-12] MEDS ORDERED: Lactated Ringer's 1,000 ML IV SCH (10:40)
--- NOTE | 2023-11-12 15:01 | NUR ---
DR COUCH IN ROOM, PT CONSENTED FOR ANGIOGRAM IN AM.
[2023-11-12] MEDS ORDERED: Clopidogrel Bisulfate 75 MG Tab PO SCH (16:00)
--- NOTE | 2023-11-12 18:52 | NUR ---
SHIFT SUMMARY PATIENT WILL BE NPO AFTER MIDNIGHT FOR ANGIOGRAM IN AM WITH DR COUCH. INDEPENDENT IN ROOM, A/OX4. NO REPORTED CHEST PAIN THIS SHIFT. ECHO AND STRESS TEST COMPLETE. CONTINUING WITH Q6 GLUCOSE CHECKS DUE TO DR MO CONCERN FOR ACIDOSIS. CRITICAL LACTIC OF 2.4 DISCUSSED DURING ROUNDING, RECHECK WAS 2.0. ABLE TO MAKE NEEDS KNOWN. CALL LIGHT IN REACH, CARES ONGOING.
[2023-11-12] MEDS ORDERED: Atorvastatin 40 MG Tab PO SCH (21:00)
[2023-11-13] MEDS ORDERED: Insulin Glargine-Yfgn 100 Unit/mL 3 ML SYR SC SCH (00:10)
[2023-11-13 05:07] VITALS: BP 125/72
--- NOTE | 2023-11-13 06:00 | NUR ---
NON PROFIT [employer]IT[employer] PATIENT IS A&OX4, VITALS ARE STABLE, ON ROOM AIR,M ON TELE RUNNING V PACED IN THE 90S, PATIENT DENIED ANY PAIN. PATIENT WAS NPO AFTER MIDNIGHT FOR A PLOAN ANGIOGRAM TODAY. PATIENT CURRENTLY BLOOD GLUCOSE IS IN THE 180S.
[2023-11-13 07:30] VITALS: BP 129/67
[2023-11-13] MEDS ORDERED: Isosorbide Mononitrate 60 MG TABCR PO SCH (09:00)
[2023-11-13] MEDS ORDERED: Verapamil HCL 2.5 MG/ML 2ML Injection ONE (10:05)
[2023-11-13] MEDS ORDERED: NS 250 ML IV ONE (10:06)
[2023-11-13] MEDS ORDERED: Heparin Sodium 1000 Units/ML 10ML MDV ONE (10:06)
[2023-11-13] MEDS ORDERED: NS 1,000 ML IV ONE ×2 (10:06→10:32)
[2023-11-13] MEDS ORDERED: Nitroglycerin 2 MG/20 ML BTL ONE (10:06)
[2023-11-13 10:32] LABS: Bun/Creatinine Ratio 22.9 (12.0-20.0); Calcium, Blood 9.5 mg/dL (8.5-10.1); Creatinine, Blood 1.05 mg/dL (0.60-1.20); Potassium, Blood 4.6 mmol/L (3.5-5.5)
[2023-11-13] MEDS ORDERED: Midazolam HCl 1MG / ML 2ML Vial ONE ×2 (10:32→11:19)
[2023-11-13] MEDS ORDERED: FentaNYL Citrate 50 MCG/ML 2 ML Injection ONE ×2 (10:32→11:19)
--- NOTE | 2023-11-13 10:33 | NUR ---
TO [facility] AT 1024
--- NOTE | 2023-11-13 11:29 | NUR ---
1112 CALLED REPORT TO HEVER FOR TX TO PCU 6 AFTER ANGIO.
[2023-11-13 12:17] VITALS: BP 108/61
[2023-11-13 13:00] VITALS: BP 110/58
[2023-11-13 13:30] VITALS: BP 100/66
[2023-11-13 14:00] VITALS: BP 120/70
[2023-11-13] MEDS ORDERED: Isosorbide Mono30 MG PO (16:11)
--- NOTE | 2023-11-13 17:56 | NUR ---
DISCHARGE HOME PT A&O X4. VSS. SPO2 > 92% ON RA. MONITOR SHOWING SR, HR 70s-80s. POST PROCEDURE EKG DONE PER ORDER & PLACED IN FRONT OF CHART. L GROIN ACCESS SITE W/ SCANT AMOUNT OF BLOOD AT SITE, REPORTED BEING UNCHANGED WHEN ASSESSED W/ CHARGE NURSE CARING FOR PT PRIOR TO THIS NURSE ASSUMING CARE OF PT. PT SITE W/ NO BLEEDING WHEN PT ABLE TO SIT UP & THEN BE OUT OF BED. MD MO TO PT BEDSIDE W/ ORDER FOR PT DISCHARGE. DISCHARGE INSTRUCTIONS REVIEWED W/ PT & SENT HOME W/ PT. PIV REMOVED. PT TAKEN OUT IN WHEELCHAIR W/ BELONGINGS @ 3526.
== END 2023-11-13 17:45 | disposition home or self-care (01) | DRG 287 ==
LOC: ER 21:05 → MEDS 21:06 → PCU 11-13 11:01
PROVIDERS: Internal Medicine; Physician Assistant; ADMIT Student in an Organized Health Care Education/Training Program
PROC: 4A023N7 Measurement of Cardiac Sampling and Pressure, Left Heart, Percutaneous Approach (ICD-10-PCS; principal; 2023-11-13)
PROC: B2111ZZ Fluoroscopy of Multiple Coronary Arteries using Low Osmolar Contrast (ICD-10-PCS; 2023-11-13)
PROC: B24BZZ3 Ultrasonography of Heart with Aorta, Intravascular (ICD-10-PCS; 2023-11-13)
PROC: B2181ZZ Fluoroscopy of Left Internal Mammary Bypass Graft using Low Osmolar Contrast (ICD-10-PCS; 2023-11-13)
PROC: 4A023N7 Measurement of Cardiac Sampling and Pressure, Left Heart, Percutaneous Approach (ICD-10-PCS; 2023-11-13)
PROC: B2111ZZ Fluoroscopy of Multiple Coronary Arteries using Low Osmolar Contrast (ICD-10-PCS; 2023-11-13)
DX: R07.89 Other chest pain (principal); I50.22 Chronic systolic (congestive) heart failure; E87.20 Acidosis, unspecified; I97.51 Accidental puncture and laceration of a circulatory system organ or structure during a circulatory system procedure; I25.10 Atherosclerotic heart disease of native coronary artery without angina pectoris; E78.5 Hyperlipidemia, unspecified; J45.909 Unspecified asthma, uncomplicated; E03.9 Hypothyroidism, unspecified; E11.9 Type 2 diabetes mellitus without complications; I35.0 Nonrheumatic aortic (valve) stenosis; I11.0 Hypertensive heart disease with heart failure; S74.11XA Injury of femoral nerve at hip and thigh level, right leg, initial encounter; Z28.21 Immunization not carried out because of patient refusal; I25.2 Old myocardial infarction; Z95.5 Presence of coronary angioplasty implant and graft; Z95.1 Presence of aortocoronary bypass graft; Z98.890 Other specified postprocedural states; Z87.891 Personal history of nicotine dependence; Z88.0 Allergy status to penicillin; Z88.6 Allergy status to analgesic agent; Z79.02 Long term (current) use of antithrombotics/antiplatelets; Z79.82 Long term (current) use of aspirin; Z79.84 Long term (current) use of oral hypoglycemic drugs; Z79.899 Other long term (current) drug therapy; Y84.0 Cardiac catheterization as the cause of abnormal reaction of the patient, or of later complication, without mention of misadventure at the time of the procedure
CPT/HCPCS: 36415; 71046; 76937; 78452; 80048; 80053; 80061; 82010; 82947; 83605; 83690; 83735; 83880; 84439; 84443; 84484; 85025; 93005; 93010; 93017; 93306; 93459; 94760; 96374; 96375; 99152; 99153; 99285-25; A9270; A9500; C1769; C1894; G0278; G0378; J0280; J1644; J1815; J2250; J2270; J2405; J2785; J3010; J7030; J7050; J7120; Q9967